=== PATIENT | male | born 1980 | race Caucasian/White ===

== ENCOUNTER 2020-11-28 07:18 | Emergency (ER) | payer SELFPAY ==
[2020-11-28 07:32] VITALS: BP 147/107; PULSE 97; RESP 18; TEMP 37.1; O2SAT 97; BMI 36.5
--- NOTE | 2020-11-28 07:37 | ED_ITS ---
HPI - Wound/Laceration General: Chief Complaint: Extremity Injury, Upper Stated Complaint: RIGHT THUMB LAC Time Seen by Provider: 11/28/20 07:32 History of Present Illness: HPI narrative: Patient is a 39-year-old male comes to the ED with a laceration on right thumb. Injury occurred just prior to arrival. 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 Patient said he rinsed his thumb under water after injury. His right thumb accidentally ran across the blade causing a laceration to his right thumb. Patient is up-to-date on his tetanus. Associated symptoms: Denies chills, fever(s), nausea or vomiting Review of Systems Const: Denies: fever(s), chills or fatigue Eyes: Denies: change in vision or eye discomfort ENMT: Denies: throat pain, odynophagia, nasal discharge or nasal congestion Card: Denies: chest pain, palpitations, edema, swelling of feet/ankles, dyspnea on exertion or orthopnea Resp: Denies: dyspnea, productive cough or non-productive cough GI: Denies: abdominal pain, nausea, vomiting, diarrhea, constipation or hematochezia : Denies: flank pain, difficulty urinating, dysuria or hematuria Musc: Denies: neck pain, back pain or extremity swelling Skin/Breast: Reports: new lesions (Right thumb laceration); Denies: rash Neuro: Denies: headache(s), numbness in extremities or weakness in extremities PENDING SALE TO [facility] ED PFSH: Social History Smoking and tobacco status: current every day smoker Physical Exam Const: COMMON NORMALS: no acute distress, patient oriented x3, healthy appearing and alert GENERAL APPEARANCE: cooperative and comfortable HENMT: COMMON NORMALS: normocephalic HEAD & SCALP: normocephalic MOUTH: Normal oral and palatal mucosa present THROAT: posterior oropharynx normal and uvula midline Neck/C-Spine: COMMON NORMALS: supple GENERAL: Yes normal visual inspection Resp: COMMON NORMALS: normal respiratory effort, No retractions, No use of accessory muscles and clear to auscultation bilaterally AUSCULTATION: clear to auscultation bilaterally Cardio: COMMON NORMALS: regular rate, regular rhythm, S1 normal heart sound present, S2 normal heart sound present, No gallops present (Cardio), No clicks present (Cardio), No murmurs present (Cardio) and Peripheral pulses 2+ throughout RATE: regular rate RHYTHM: regular rhythm HEART SOUNDS: S1 normal heart sound present and S2 normal heart sound present PERIPHERAL PULSES: Peripheral pulses 2+ throughout GI: COMMON NORMALS: Normal to inspection, nondistended, normoactive bowel sounds present, Soft to palpation, non-tender and no masses PALPATION: Yes Soft to palpation : COMMON NORMALS: Yes no CVA tenderness BLADDER/KIDNEY EXAM: Yes no CVA tenderness Back/Pelvis: COMMON NORMALS: no CVA tenderness Extremity: NARRATIVE EXTREMITY EXAM: Right thumb?1 cm superficial laceration. Clean noncontaminated with minimal bleeding. GENERAL: Yes normal exam except as noted Neuro: COMMON NORMALS: patient oriented x3 and moves all extremities SENSORIUM/ORIENTATION: Yes alert Skin: NARRATIVE SKIN EXAM: Right thumb?1 cm superficial laceration. Clean noncontaminated with minimal bleeding. GENERAL SKIN EXAM: dry skin Procedures Laceration Laceration 1: Site: hand (Thumb) Side (If applicable): right Size (cm): 1 Description: linear and clean Depth: simple, single layer Local Anesthetic: lidocaine 1% Amount of anesthesia used (mL): 10 Pre-repair: irrigated extensively (With normal saline and cleaned with CHG swab) Skin layer closed with: nylon Size (cm): 4-0 Number of sutures: 5 Technique: simple, interrupted Course Vital Signs: Vital signs: Vital Signs Temperature 98.7 F 11/28/20 08:16 Pulse Rate 90 11/28/20 08:16 Respiratory Rate 18 11/28/20 08:16 Blood Pressure 147/100 11/28/20 08:16 Pulse Oximetry 99 11/28/20 08:16 MDM - Wound/Laceration MDM Narrative: Medical decision making narrative: Patient is a 39-year-old male comes to the ED with a 1 cm superficial laceration to right thumb. Patient is up-to-date on his tetanus. Laceration site was irrigated extensively with normal saline and the skin was cleaned with CHG swab. Lidocaine 1% was used as local and 5 sutures were placed to close laceration. See procedure note for details. Patient was discharged home with a prescription for Keflex. He was told to follow-up with his PCP, urgent care or ED to have sutures removed in 7 to 10 days. Return precautions given. Patient understood and agreed with plan. Discharge Plan Discharge Patient Disposition: Home Clinical Impression: Finger laceration Qualifiers: Encounter type: initial encounter Finger: thumb Damage to nail status: without damage Foreign body presence: without foreign body Laterality: right Qualified Code(s): S61.011A - Laceration without foreign body of right thumb without damage to nail, initial encounter Condition: Stable Prescriptions: New cephalexin 500 mg capsule 500 mg PO Q6H 4 Days Qty: 16 RF: 0 No Action No Known Home Medications RF: 0 meloxicam 15 mg tablet 15 mg PO DAILY Qty: 30 RF: 0 Discharge Orders: Discharge ED (Routine); Ordered 11/28/20 Ordered By: Jefferson Hoskins Discharge Diet: Regular Discharge Activity: Limit activity as instructed Patient Instructions: Finger Laceration (ED) Activity Restrictions/Additional Instructions: Take full course of antibiotics as prescribed. Keep laceration site clean and dry for the next 48 hours. Then after that you can clean and re-bandage daily. Watch for signs of infection such as redness, warmth, increased tenderness and puslike drainage. If you see the signs of infection return to the ED, urgent care or PCP for reevaluation. call your PCP to schedule a follow-up appointment for reevaluation and suture removal in about 7-10 days. Continue taking all home meds. Follow discharge plans as discussed. You can return to the ED if symptoms worsen. Coding Level of Care Code ED [employer] for [employer] Exam Comprehensive
[2020-11-28 07:39] VITALS: BP 147/100; PULSE 87; PULSE 90; RESP 18; O2SAT 100
[2020-11-28] MEDS: lidocaine 1% INJ 20 mL INJECTION (07:42)
[2020-11-28 08:16] VITALS: BP 147/100; PULSE 90; RESP 18; TEMP 37.1; O2SAT 99
== END 2020-11-28 08:20 | disposition home or self-care (01) ==
PROVIDERS: Emergency Provider Physician Assistant
DX: S61.011A Laceration without foreign body of right thumb without damage to nail, initial encounter (principal); F17.210 Nicotine dependence, cigarettes, uncomplicated; W26.0XXA Contact with knife, initial encounter
CPT/HCPCS: 12001; 99282